=== PATIENT | male | born 1995 | race Caucasian/White ===

== ENCOUNTER 2017-03-10 02:52 | Emergency (ER) | payer OTHER ==
[~2017-03-10] VITALS: Ht 175.3 cm; Wt 65.3 kg
[2017-03-10 02:57] VITALS: TEMP 37; Ht 175.3 cm; Wt 65.3 kg
--- NOTE | 2017-03-10 04:10 | EMERGENCY ROOM VISIT NOTE ---
History Report prepared by Arlynibbaltazar: Quita Wright Under the Supervision of: Dr. Mukesh Grey M.D. First contact with patient: 03:09 Chief Complaint: HEAD INJURY (MINOR) Stated Complaint: FELL DOWN STAIRS AND HIT FACE History of Present Illness The patient is a 21 year old male who presents to the Emergency Room with complaints of an episode of a head injury occurring 3 hours ago. The patient states that he has been drinking and fell down 8-9 stairs. He complains of his lip being swollen, right hip pain, and pain at his tailbone. The patient denies pain in his teeth, biting his tongue, neck pain, weakness in arms or legs, and loss of bowel or bladder control. The patient notes he took Adderall 11 hours ago. Source of History: patient Onset: 3 hours ago Position: head Quality: other (global) Timing: other (episode) Associated Symptoms: + back pain (tailbone), No neck pain, No weakness Note: He complains of his lip being swollen and right hip pain. The patient denies pain in his teeth, biting his tongue, and loss of bowel or bladder control. Review of Systems See HPI for pertinent positives & negatives. A total of 10 systems reviewed and were otherwise negative. Past Medical & Surgical Medical Problems: (1) No Known Active Medical Problems Family History Patient reports no known family medical history. Social History Smoking Status: Current Every Day Smoker Alcohol Use: occasionally Drug Use: other (Adderall) Marital Status: single Housing Status: lives with roommate Occupation Status: [employer] student Current/Historical Medications No Active Prescriptions or Reported Meds Allergies Coded Allergies: No Known Allergies (Unverified , 03/10/17) Physical Exam Vital Signs Date Time Temp Pulse Resp B/P (MAP) Pulse Ox O2 Delivery O2 Flow Rate FiO2 03/10/17 04:22 88 18 112/60 95 Room Air 03/10/17 02:57 37.0 122 16 125/64 96 Room Air Physical Exam GENERAL: Patient is heavily intoxicated though awake, alert and oriented. Smells of alcohol. Well appearing and in no acute distress. HEAD: Multiple abrasions over forehead, nose, and upper lip. AT/NC EYES: Injected conjunctiva. Normal EOM. Pupils are large, equal/reactive. ENT: Mucous membranes moist, no nasal congestion, . NECK: No step-offs, no adenopathy, no meningismus, trachea is midline. LUNGS: No dyspnea. Clear to auscultation and equal bilaterally. No wheeze, no rhonchi. HEART: Tachycardic rate and regular rhythm. No murmurs, rubs, gallops appreciated. ABDOMEN: Soft, nontender, bowel sounds positive, no masses appreciated, no peritonitis. BACK: No midline tenderness, no CVA tenderness EXTREMITIES: Normal motion all extremities, no cyanosis, no edema. NEUROLOGIC: Intoxicated. Alert, oriented. No acute motor or sensory deficits, no focal weakness, cranial nerves grossly intact. SKIN: No rash, no jaundice, no diaphoresis. Medical Decision & Procedures ER Provider Diagnostic Interpretation: Radiology results and stated below per my review and radiologist interpretation: CT HEAD: No acute intracranial abnormality. No acute osseous abnormality. Mild mucosal thickening in the paranasal sinuses. Radiologist: Dickson Linn MD Study ready at 03:38 and initial results transmitted at 03:46. CT C SPINE: No acute fracture or traumatic malalignment of the cervical spine. Radiologist: Dickson Coles MD Study ready at 03:38 and initial results transmitted at 03:47. PELVIS 1 VIEW: Findings: The results were interpreted by me. No fracture or dislocation. no effusion noted. ED Course 0309: The patient was evaluated in room A9. A complete history and physical exam was performed. 0352: I reevaluated the patient and he feels fine, but his tailbone still hurts. 0413: Reevaluated the patient and he is feeling good. Discussed results and discharge instructions: he verbalized understanding and agreement. The patient is ready for discharge. Medical Decision Differential: Alcohol Intoxication, Drug Intoxication, Electrolyte Abnormality, Trauma, Intracranial Event, Toxicological, Excited Delirium, Serotonin Syndrome , amongst other pathologies entertained. 21 yr old intoxicated male brought in by friend after fall down stairs several hours earlier. Multiple contusions to fact and some bruising arm. No loose teeth, deformities, neck TTP, no other acute traumatic findings. Given heavy intoxication felt that CT imaging indicated. CT head/cspine negative for acute findings. Pelv Xray looks OK. No indication for CXR as exam benign. Protecting airway and breathing comfortably throughout ED stay. EtOH positive. Monitored and discharged when awake, alert, oriented and denies any complaints. Impression Primary Impression: Closed head injury Additional Impressions: Facial contusion Fall down stairs Coccyx contusion Scribe Attestation The scribe's documentation has been prepared under my direction and personally reviewed by me in its entirety. I confirm that the note above accurately reflects all work, treatment, procedures, and medical decision making performed by me. Departure Information Dispostion Home / Self-Care Prescriptions No Active Prescriptions or Reported Meds Referrals No Doctor, Assigned (PCP) Forms HOME CARE DOCUMENTATION FORM, IMPORTANT VISIT INFORMATION Patient Instructions ED Contusion Sacrum Coccyx, ED Head Injury Closed, My [facility] Health Problem Qualifiers
[2017-03-10 04:22] VITALS: BP 112/60; PULSE 88; O2SAT 95
--- NOTE | 2017-03-10 06:32 | DIAGNOSTIC IMAGING REPORT ---
CT HEAD WITHOUT CONTRAST (CT) CLINICAL HISTORY: Head pain status post head trauma. COMPARISON STUDY: No previous studies for comparison. TECHNIQUE: Axial CT of the brain is performed from the vertex to the skull base. IV contrast was not administered for this examination. A dose lowering technique was utilized adhering to the principles of ALARA. CT DOSE: 1436.38 mGy.cm FINDINGS: No intra or extra-axial mass lesions are visualized. There is no CT evidence of acute cortical infarction. There is no evidence of midline shift. There is no acute hemorrhage. No calvarial fractures are visualized. There is no evidence of pathologic ventricular dilatation. There is mild mucosal thickening within sphenoid and ethmoid sinuses. IMPRESSION: Minor paranasal sinus mucosal thickening. Otherwise normal noncontrast head CT. Electronically signed by: James Pennington M.D. 03/10/2017 6:30 AM Dictated Date/Time: 03/10/2017 6:29 AM
--- NOTE | 2017-03-10 07:19 | DIAGNOSTIC IMAGING REPORT ---
CT OF THE CERVICAL SPINE WITHOUT CONTRAST CLINICAL HISTORY: Head injury, ETOH, fall down stairs COMPARISON STUDY: No previous studies for comparison. TECHNIQUE: Helical axial images of the cervical spine were obtained without IV contrast. Sagittal and coronal reconstructions were viewed. A dose lowering technique was utilized adhering to the principles of ALARA. FINDINGS: Alignment of the cervical spine is anatomic. Vertebral body heights are maintained. No acute fracture is identified. There is no prevertebral edema. IMPRESSION: No acute cervical spine fracture or subluxation. Electronically signed by: Itz Reyes M.D. 03/10/2017 7:18 AM Dictated Date/Time: 03/10/2017 7:13 AM
--- NOTE | 2017-03-10 07:20 | DIAGNOSTIC IMAGING REPORT ---
PELVIS 1 OR 2 VIEW ROUTINE CLINICAL HISTORY: Fall. Hip pain. COMPARISON STUDY: No previous studies for comparison. FINDINGS: The sacroiliac joints and symphysis pubis are intact. There is no acute fracture within the pelvis or hips. IMPRESSION: No acute fracture within the pelvis or hips. Electronically signed by: Itz Reyes M.D. 03/10/2017 7:19 AM Dictated Date/Time: 03/10/2017 7:18 AM
== END 2017-03-10 04:27 | disposition home or self-care (01) ==
LOC: C.EDB 02:55 → C.EDA 04:27
DX: S00.83XA Contusion of other part of head, initial encounter (principal); S30.0XXA Contusion of lower back and pelvis, initial encounter; W10.9XXA Fall (on) (from) unspecified stairs and steps, initial encounter; F17.210 Nicotine dependence, cigarettes, uncomplicated; F10.120 Alcohol abuse with intoxication, uncomplicated